=== PATIENT | female | born 1985 | race Caucasian/White ===

== ENCOUNTER 2017-03-24 00:08 | Emergency (ER) | payer OTHER, MEDICAID ==
[~2017-03-24] VITALS: Ht 170.2 cm; Wt 93.4 kg
[~2017-03-24 00:08] MED LIST: ACET-2321 PO; NO ROUTINE MEDS
--- OUTSIDE RECORDS SUMMARY | 2017-03-24 00:13 | XMS REPORT | Continuity of Care Document ---
Author Author [facility] Organization [facility] Address Unknown Phone Unavailable Support Name Relationship Address Phone ARABELLA DELAROSA MD Caregiver [address] [place] [phone] Unavailable EPIFANIO GANN Next Of Kin [address] [place] [address] Insurance Providers Guarantor Carmelita Gann Address [address] [place] [address] Email [email or web address] Payer [facility] Policy Number [id number] Subscriber's Name Carmelita Gann Relationship 18 Self Effective Date 16 Expiration Date 16 Advance Directives Directive Response Recorded Date/Time Advanced Directives Type None 10/17/16 1:30pm Chief Complaint and Reason for Visit Chief Complaint Headache Reason for Visit Headache Problems Active Problems Medical Problem Onset Date Status Abdominal discomfort Unknown Acute Bronchitis Unknown Acute Bronchospasm Unknown Acute Cat bite of multiple sites Unknown Acute Cat bite of multiple sites Unknown Acute Cough Unknown Acute Dyspnea Unknown Acute Headache Unknown Acute Headache Unknown Acute Headache Unknown Acute Hx of headache Unknown Acute Hx of headache Unknown Acute Left shoulder strain Unknown Acute Left shoulder strain Unknown Acute Migraine Unknown Acute Unknown Acute Unknown Acute Sinusitis Unknown Acute Term , repeat Unknown Acute Vomiting Unknown Acute Past Problems Medical Problem Onset Date Chest pain Unknown Medications Current Home Medications Medication Dose Units Route Directions Days Qty Instructions Start Date Acetaminophen (Tylenol) 325 Mg Tablet 1 Tab Oral as needed for Pain/Fever 10/17/16 No Routine Meds 05/05/16 Past Home Medications Medication Directions Ordered Status Amoxicillin/Potassium Clav (Augmentin 500-125 Tablet) 1 Each Tablet, 500 Mg Oral Three Times A Day 12/26/14 Discontinued Azithromycin (Zithromax) 250 Mg Tablet, 1 Tab Oral Daily 10/24/15 Discontinued Citalopram Hydrobromide (Celexa) 10 Mg Tablet, 10 Mg Oral Daily 10/28/10 Discontinued Citalopram Hydrobromide (Citalopram) 10 Mg/5 Ml Solution, 10 Mg Oral Daily Discontinued Docusate Sodium (Colace) 100 Mg Capsule, 1 Cap Oral Daily 09/17/10 Discontinued Ferrous Sulfate 1 Tab Tablet, 1 Tab Oral Daily 09/17/10 Discontinued Hydrocodone Bit/Acetaminophen (Lortab 5) 1 Tab Tablet, 1 Tab Oral As Needed 09/17/10 Discontinued Ibuprofen (Motrin) 800 Mg Tablet, 1 Tab Oral As Needed 09/17/10 Discontinued None , 12/26/14 Discontinued Vits W-Ca,Fe,Fa(<1MG) () 1 Tab Tablet, 1 Tab Oral Daily 17/09 Discontinued Social History Social History Problem Response Recorded Date/Time Onset Date Status Chewing Tobacco Status No 10/17/2016 1:30pm Not Applicable Not Applicable Hx Substance Use No 10/17/2016 1:30pm Not Applicable Not Applicable Hx Alcohol Use No 10/17/2016 1:30pm Not Applicable Not Applicable Has the pt used tobacco in the last 12 months No 02/20/2016 3:14pm Not Applicable Not Applicable Tobacco Usage none 06/28/2014 1:04pm Not Applicable Not Applicable Query Response Start Date Stop Date Smoking Status Never smoker Hospital Discharge Instructions No hospital discharge instructions. Plan of Care Discharge Date 10/17/16 2:25pm Disposition 01 DISCHARGED HOME, SELF-CARE Condition at Discharge Stable Instructions/Education Provided Migraine -- Adult Prescriptions See Medication Section Referrals [facility] Note: RECOMMEND FOLLOW UP WITH YOUR DOCTOR IN 24 HOURS IF NOT IMPROVED. Additional Instructions/Education RECOMMEND YOU GO HOME AND REST IN A QUIET ROOM ; MAY CONTINUE TO TAKE MOTRIN AND TYLENOL IF NEEDED. Functional Status No functional status results. Allergies, Adverse Reactions, Alerts Allergen Type Severity Reaction Status Last Updated No Known Drug Allergies Allergy Unknown Active 11/01/15 Immunizations Query Response on File Recorded Date/Time Hx Influenza Vaccination Y OCT 2015 02/20/16 10:20am Hx Pneumococcal Vaccination No 02/20/16 10:20am Hx Tetanus, Diptheria, Pertussis Yes 08/17/15 6:34pm Hx Influenza Vaccination Y OCT 2015 02/20/16 10:20am Hx Tetanus Diptheria Y 200408/17/15 6:34pm Hx Tetanus, Diptheria, Pertussis Yes 08/17/15 6:34pm DTaP Vaccine History 2005 11/16/16 1:30pm Influenza Vaccine Hx 12-30-15 11/16/16 1:30pm Tdap Vaccine Hx 01-30-16 02/20/16 3:14pm Vital Signs Acute Vital Signs Vital Response Date/Time Temperature (Fahrenheit) 97.8 deg F (96.8 - 99.1) 10/17/2016 2:25pm Temperature (Calculated Celsius) 36.66824 degrees C (36.0 - 37.3) 10/17/2016 2:25pm Pulse Rate (adult) 81 bpm (60 - 100) 10/17/2016 2:25pm Respiratory Rate 17 breaths/min (10 - 20) 10/17/2016 2:25pm O2 Sat by Pulse Oximetry 98 % (90 - 100) 10/17/2016 2:25pm Blood Pressure 122/59 mm Hg 10/17/2016 2:25pm Height (Feet) 5 feet 10/17/2016 1:30pm Height (Inches) 7.00 inches 10/17/2016 1:30pm Weight (Kilograms) 96.000 kg 10/17/2016 1:30pm Body Mass Index (BMI) 33.0 10/17/2016 1:30pm Results No known relevant diagnostic tests, laboratory data and/or discharge summary. Procedures No known history of procedures. Encounters Encounter Location Arrival/Admit Date Discharge/Depart Date Attending Provider Departed Emergency Room [facility] 10/17/16 1:26pm 10/17/16 2: 25pm ARABELLA DELAROSA MD Recent Diagnosis
--- OUTSIDE RECORDS SUMMARY | 2017-03-24 00:13 | XMS REPORT | Continuity of Care Document ---
Author Author [facility] Organization [facility] Address Unknown Phone Unavailable Support Name Relationship Address Phone RAFAEL BABB MD Caregiver [address] [place] [address] [place] [phone] EPIFANIO GANN Next Of Kin [address] [place] [address] Insurance Providers Payer Name Policy Number Subscriber Name Relationship [facility] [id number] Carmelita Gann 18 Self Problems Medical Problems Problem Onset Date Status Hx of headache Unknown Active Headache Unknown Active Hx of headache Unknown Active Headache Unknown Active Vomiting Unknown Active Headache Unknown Active Left shoulder strain Unknown Active Left shoulder strain Unknown Active Cat bite of multiple sites Unknown Active Medications Medication Dose Route Sig Days/Qty Instructions Order Date Discontinued Date Status Vits W-Ca,Fe,Fa(<1MG) 1 Tab PO DAILY 09/17/10 03/12/13 Discontinued Citalopram Hydrobromide 10 Mg PO DAILY 09/17/10 10/28/10 Discontinued Ferrous Sulfate 1 Tab PO DAILY 09/17/10 03/12/13 Discontinued Docusate Sodium 1 Cap PO DAILY 09/17/10 03/12/13 Discontinued Hydrocodone Bit/Acetaminophen 1 Tab PO NEEDED 09/17/10 10/28/10 Discontinued Ibuprofen 1 Tab PO NEEDED 09/17/10 03/12/13 Discontinued Citalopram Hydrobromide 10 Mg PO DAILY 10/28/10 03/12/13 Discontinued [None] 12/26/14 Active Amoxicillin/Potassium Clav 500 Mg PO THREE TIMES A DAY 7 Days 12/26/14 Active Social History Social History Problem Response Recorded Date/Time Hx Substance Use No 12/26/2014 1:20pm Hx Alcohol Use Yes 12/26/2014 1:20pm Tobacco Usage none 06/28/2014 1:04pm Query Response Start Date Stop Date Smoking Status Never smoker Hospital Discharge Instructions No hospital discharge instructions. Plan of Care No plan of care. Functional Status Query Response Date Recorded Physical Hygiene Self December 26, 2014 1:20pm Disabilities Visual December 26, 2014 1:20pm Devices Used Glasses December 26, 2014 1:20pm Dressing Self December 26, 2014 1:20pm Ambulation Self December 26, 2014 1:20pm Diet Self December 26, 2014 1:20pm Mental Status Alert December 26, 2014 1:32pm Disabilities Visual December 26, 2014 1:20pm Devices Used Glasses December 26, 2014 1:20pm Physical Hygiene Self December 26, 2014 1:20pm Dressing Self December 26, 2014 1:20pm Ambulation Self December 26, 2014 1:20pm Diet Self December 26, 2014 1:20pm Allergies, Adverse Reactions, Alerts Allergen Type Severity Reaction Status Last Updated No Known Drug Allergies Allergy Unknown Active 12/26/14 Immunizations Name Given Type Hx Influenza Vaccination Y 2012 Historical Hx Pneumococcal Vaccination No Historical Hx Tetanus, Diptheria, Pertussis Yes Historical Hx Influenza Vaccination Y 2012 Historical Hx Tetanus Diptheria Y 2004 Historical Hx Tetanus, Diptheria, Pertussis Yes Historical Tdap 12/26/14 Administered Vital Signs Acute Vital Signs Vital Response Date/Time Temperature (Fahrenheit) 98.3 deg F (96.8 - 99.1) Temperature (Calculated Celsius) 36.86729 degrees C (36.0 - 37.3) Pulse Rate (adult) 79 bpm (60 - 100) Respiratory Rate 16 breaths/min (10 - 20) O2 Sat by Pulse Oximetry 98 % (90 - 100) Blood Pressure 127/75 mm Hg Height 5 ft 7 in Weight 216 lb Body Mass Index 33.0 kg/m^2 Results Test Source Date Result Interp. Ref. Range Comments Alanine Aminotransferase (ALT/SGPT) June 28, 2014 1:20pm 27 U/L N 9-52 Albumin June 28, 2014 1:20pm 4.1 G/DL N 3.5-5.0 Albumin/Globulin Ratio June 28, 2014 1:20pm 1.6 RATIO N 1.1-2.2 Alkaline Phosphatase June 28, 2014 1:20pm 65 U/L N 38-126 Amylase Level June 28, 2014 1:20pm 53 U/L N 30-110 Anion Gap June 28, 2014 1:20pm 12 MEQ/L N 5-15 Aspartate Amino Transf (AST/SGOT) June 28, 2014 1:20pm 17 U/L N 14-36 BUN/Creatinine Ratio June 28, 2014 1:20pm 9 RATIO N 6-26 Basophils # (Auto) June 28, 2014 1:20pm 0.0 T/MM3 N 0-0.2 Basophils (%) (Auto) June 28, 2014 1:20pm 0.1 % N 0-2 Blood Urea Nitrogen June 28, 2014 1:20pm 6.0 MG/DL L 7-17 Calcium Level June 28, 2014 1:20pm 8.7 MG/DL N 8.4-10.2 Calculated Osmolality June 28, 2014 1:20pm 266 MOSM/KG N 261-280 Carbon Dioxide Level June 28, 2014 1:20pm 25 MEQ/L N 22-30 Chloride Level June 28, 2014 1:20pm 102 MEQ/L N 98-107 Creatinine June 28, 2014 1:20pm 0.7 MG/DL N 0.7-1.2 Eosinophils # (Auto) June 28, 2014 1:20pm 0.1 T/MM3 N 0-0.5 Eosinophils (%) (Auto) June 28, 2014 1:20pm 1.3 % N 0-4 Globulin June 28, 2014 1:20pm 2.5 G/DL N 2.4-3.6 Glucose Level June 28, 2014 1:20pm 103 MG/DL N 65-110 Hematocrit June 28, 2014 1:20pm 38.0 % N 36-46 Hemoglobin June 28, 2014 1:20pm 12.9 GM/DL N 12-16 Lipase June 28, 2014 1:20pm 56 U/L N 23-300 Lymphocytes # (Auto) June 28, 2014 1:20pm 1.7 T/MM3 N 1-4.8 Lymphocytes (%) (Auto) June 28, 2014 1:20pm 24.1 % N 23-45 Mean Corpuscular Hemoglobin June 28, 2014 1:20pm 28.7 UUG N 26-34 Mean Corpuscular Hemoglobin Concent June 28, 2014 1:20pm 33.9 GM/DL N 31 -37 Mean Corpuscular Volume June 28, 2014 1:20pm 84.4 UM3 N 80-100 Mean Platelet Volume June 28, 2014 1:20pm 9.6 UM3 N 9.4-12.4 Monocytes # (Auto) June 28, 2014 1:20pm 0.3 T/MM3 N 0-0.8 Monocytes (%) (Auto) June 28, 2014 1:20pm 4.8 % N 0-9.0 Neutrophils # (Auto) June 28, 2014 1:20pm 4.8 T/MM3 N 1.8-7.7 Neutrophils (%) (Auto) June 28, 2014 1:20pm 69.7 % H 33-66 Platelet Count June 28, 2014 1:20pm 303 T/MM3 N 130-400 Potassium Level June 28, 2014 1:20pm 3.7 MEQ/L N 3.6-5 RDW Standard Deviation June 28, 2014 1:20pm 40.7 FL N 36.9-50.2 Red Blood Count June 28, 2014 1:20pm 4.50 M/MM3 N 4.00-5.20 Sodium Level June 28, 2014 1:20pm 139 MEQ/L N 134-144 Total Bilirubin June 28, 2014 1:20pm 0.40 MG/DL N 0.20-1.30 Total Protein June 28, 2014 1:20pm 6.6 G/DL N 6.3-8.2 Urine Bacteria June 28, 2014 1:25pm None seen - Has specimen been collected/obtained? Y Urine Bilirubin June 28, 2014 1:25pm Negative - Has specimen been collected/obtained? Y Urine Blood June 28, 2014 1:25pm Negative - Has specimen been collected/obtained? Y Urine Collection Type June 28, 2014 1:25pm Voided-not cc-midstr - Has specimen been collected/obtained? Y Urine Color June 28, 2014 1:25pm Yellow - Has specimen been collected /obtained? Y Urine Glucose (UA) June 28, 2014 1:25pm Negative - Has specimen been collected/obtained? Y Urine Ketones June 28, 2014 1:25pm Negative - Has specimen been collected/obtained? Y Urine Leukocyte Esterase June 28, 2014 1:25pm 1+ H - Has specimen been collected/obtained? Y Urine Nitrite June 28, 2014 1:25pm Negative - Has specimen been collected/obtained? Y Urine Protein June 28, 2014 1:25pm Negative - Has specimen been collected/obtained? Y Urine RBC June 28, 2014 1:25pm 3-5 /HPF H - Has specimen been collected /obtained? Y Urine Specific [place] June 28, 2014 1:25pm 1.015 - Has specimen been collected/obtained? Y Urine Squamous Epithelial Cells June 28, 2014 1:25pm 0-5 - Has specimen been collected/obtained? Y Urine Turbidity June 28, 2014 1:25pm Sl cloudy - Has specimen been collected/obtained? Y Urine Urobilinogen June 28, 2014 1:25pm 0.2 EU/DL - Has specimen been collected/obtained? Y Urine WBC June 28, 2014 1:25pm 3-5 /HPF - Has specimen been collected /obtained? Y Urine pH June 28, 2014 1:25pm 7.5 - Has specimen been collected/ obtained? Y White Blood Count June 28, 2014 1:20pm 6.9 T/MM3 N 4.5-11.0 Chemistry Specimen Hemolysis June 28, 2014 1:20pm < 15 0-25 0-25: No Hemolysis.26-70: Slight Hemolysis - can falsely elevate K and Urine Protein. 71-285: Moderate Hemolysis - can falsely elevate K, Troponin I, CA 19-9, PTH, CSF GLucose, and Urine Protein, and can falsely decrease Phenytoin. 286-999: Gross Hemolysis - can falsely elevate K, Troponin I, CA 19-9, PTH, CSF Glucose, and Urine Protine, and can falsely decrease Phenytoin. Recommend specimen recollection. Lab Scanned Report August 29, 2010 12:47pm LAB RESULTS - SCANNED [id number] - Turbidity June 28, 2014 1:20pm < 20 0-20 Glomerular Filtration Rate Calc June 28, 2014 1:20pm 100 - Immature Granulocyte # (Auto) June 28, 2014 1:20pm 0.00 T/MM3 N 0.00- 0.03 Immature Granulocyte % (Auto) June 28, 2014 1:20pm 0.0 % N 0.0-0.5 Icterus Index June 28, 2014 1:20pm < 2 0-7 Urine Microscopic Not Indicated April 04, 2010 10:10pm Not indicated - Has specimen been collected/obtained? Y Procedures No known history of procedures. Encounters Encounter Location Date/Time Departed Emergency Room [facility] 12/26/14 11:59am Recent Diagnosis
--- OUTSIDE RECORDS SUMMARY | 2017-03-24 00:13 | XMS REPORT | Continuity of Care Document ---
Author Author [facility] Organization [facility] Address Unknown Phone Unavailable Support Name Relationship Address Phone ASHWIN GALLARDO MD Caregiver [address] [place] [address] [place] [address] EPIFANIO GANN Next Of Kin [address] [place] [address] Insurance Providers Payer Name Policy Number Subscriber Name Relationship [employer] [id number] Carmelita Gann 18 Self Advance Directives Directive Response Recorded Date/Time Advanced Directives Type None 08/25/14 9:48am Problems Medical Problems Problem Onset Date Status Hx of headache Unknown Active Headache Unknown Active Hx of headache Unknown Active Headache Unknown Active Vomiting Unknown Active Headache Unknown Active Left shoulder strain Unknown Active Left shoulder strain Unknown Active Medications Medication Dose Route Sig [...] 10 Mg PO DAILY 10/28/10 03/12/13 Discontinued Social History Social History Problem Response Recorded Date/Time Smoking Status Never smoker 04/26/2014 12:05pm Hx Substance Use No 08/25/2014 9:48am Hx Alcohol Use Yes 08/25/2014 9:48am Query Response Start Date Stop Date Smoking Status Never smoker Hospital Discharge Instructions No hospital discharge instructions. Plan of Care No plan of care. Functional Status Query Response Date Recorded Physical Hygiene Self August 25, 2014 9:48am Disabilities Visual August 25, 2014 9:48am Devices Used Glasses August 25, 2014 9:48am Dressing Self August 25, 2014 9:48am Ambulation Self August 25, 2014 9:48am Diet Self August 25, 2014 9:48am Mental Status Alert August 25, 2014 10:56am Disabilities Visual August 25, 2014 9:48am Devices Used Glasses August 25, 2014 9:48am Physical Hygiene Self August 25, 2014 9:48am Dressing Self August 25, 2014 9:48am Ambulation Self August 25, 2014 9:48am Diet Self August 25, 2014 9:48am Allergies, Adverse Reactions, Alerts Allergen Type Severity Reaction Status Last Updated No Known Drug Allergies Allergy Unknown Active 08/25/14 Immunizations Name Given Type Hx Influenza Vaccination Y 2012 Historical Hx Pneumococcal Vaccination No Historical Hx Tetanus, Diptheria, Pertussis Yes Historical Hx Influenza Vaccination Y 2012 Historical Hx Tetanus Diptheria Y 2004 Historical Hx Tetanus, Diptheria, Pertussis Yes Historical Vital Signs Acute Vital Signs Vital Response Date/Time Temperature (Fahrenheit) 98.2 deg F (96.8 - 99.1) Temperature (Calculated Celsius) 36.11799 degrees C (36.0 - 37.3) Pulse Rate (adult) 74 bpm (60 - 100) Respiratory Rate 16 breaths/min (10 - 20) O2 Sat by Pulse Oximetry 98 % (90 - 100) Blood Pressure 126/64 mm Hg Height 5 ft 7 in Weight 206 lb Body Mass Index 32.0 kg/m^2 Results Test Source Date Result Interp. [...] specimen been collected /obtained? Y Urine Specific [place] June 28, 2014 1:25pm 1.015 - Has [...] 29, 2010 12:47pm LAB RESULTS - SCANNED [id number] - Turbidity June 28, 2014 1:20pm < [...] - Has specimen been collected/obtained? Y Procedures Procedure Status Date Provider(s) THER/PROPH/DIAG INJ IV PUSH completed 06/28/14 TX/PRO/DX INJ NEW DRUG ADDON completed 06/28/14 HYDRATE IV INFUSION ADD-ON completed 06/28/14 Encounters Encounter Location Date/Time Registered Emergency Room [facility] 08/25/14 9:39am Departed Emergency Room [facility] 06/28/14 12:45pm Recent Diagnosis
--- OUTSIDE RECORDS SUMMARY | 2017-03-24 00:13 | XMS REPORT | Continuity of Care Document ---
Author Author [facility] Organization [facility] Address Unknown Phone Unavailable Support Name Relationship Address Phone ASHWIN GALLARDO MD Caregiver [address] [place] [address] [place] [address] EPIFANIO GANN Next Of Kin [address] [place], [place] [id number] Insurance Providers Payer Name Policy Number Subscriber Name Relationship Self Pay Raheel Gann 18 Self Advance Directives Directive Response Recorded Date/Time Advanced Directives Type None 06/28/14 3:25pm Problems Medical Problems Problem Onset Date Status Hx of headache Unknown Active Headache Unknown Active Hx of headache Unknown Active Headache Unknown Active Vomiting Unknown Active Headache Unknown Active Medications Medication Dose Route Sig [...] 10 Mg PO DAILY 10/28/10 03/12/13 Discontinued Miscellaneous Information 04/26/14 Active Promethazine HCl 1 Tab PO EVERY EIGHT HOURS PRN NAUSEA 15 Qty 06/28/14 Active Social History Social History Problem Response Recorded Date/Time Smoking Status Never smoker 04/26/2014 12:05pm Chewing Tobacco Status No 06/28/2014 1:06pm Hx Substance Use No 06/28/2014 1:06pm Hx Alcohol Use Yes 06/28/2014 1:06pm Query Response Start Date Stop Date Smoking Status Never smoker Hospital Discharge Instructions No hospital discharge instructions. Plan of Care No plan of care. Functional Status Query Response Date Recorded Physical Hygiene Self June 28, 2014 1:06pm Disabilities Visual June 28, 2014 1:06pm Devices Used Glasses June 28, 2014 1:06pm Dressing Self June 28, 2014 1:06pm Ambulation Self June 28, 2014 1:06pm Diet Self June 28, 2014 1:06pm Mental Status Alert June 28, 2014 2:32pm Disabilities Visual June 28, 2014 1:06pm Devices Used Glasses June 28, 2014 1:06pm Physical Hygiene Self June 28, 2014 1:06pm Dressing Self June 28, 2014 1:06pm Ambulation Self June 28, 2014 1:06pm Diet Self June 28, 2014 1:06pm Allergies, Adverse Reactions, Alerts Allergen Type Severity Reaction Status Last Updated No Known Drug Allergies Allergy Unknown Active 03/12/13 Immunizations Name Given Type Hx Influenza Vaccination Y 2012 Historical Hx Pneumococcal Vaccination No Historical Hx Tetanus, Diptheria, Pertussis Yes Historical Hx Influenza Vaccination Y 2012 Historical Hx Tetanus Diptheria Y 2004 Historical Hx Tetanus, Diptheria, Pertussis Yes Historical Vital Signs Acute Vital Signs Vital Response Date/Time Temperature (Fahrenheit) 97.2 deg F (96.8 - 99.1) Temperature (Calculated Celsius) 36.11432 degrees C (36.0 - 37.3) Pulse Rate (adult) 64 bpm (60 - 100) Respiratory Rate 18 breaths/min (10 - 20) O2 Sat by Pulse Oximetry 100 % (90 - 100) Blood Pressure 111/67 mm Hg Height 5 ft 7 in Weight 203 lb Body Mass Index 31.0 kg/m^2 Results Test Source Date Result Interp. [...] specimen been collected /obtained? Y Urine Specific [place] June 28, 2014 1:25pm 1.015 - Has [...] 29, 2010 12:47pm LAB RESULTS - SCANNED [id number] - Turbidity June 28, 2014 1:20pm < [...] Encounters Encounter Location Date/Time Departed Emergency Room [facility] 06/28/14 12:45pm Departed Emergency Room [facility] 04/26/14 11:28am Recent Diagnosis
[2017-03-24 00:17] VITALS: Ht 170.2 cm; Wt 93.4 kg
[2017-03-24] MEDS ORDERED: HYDROMORPHONE 2mg/ml INJECTION IV ONE (00:30)
[2017-03-24] MEDS ORDERED: KETOROLAC 30mg/ml INJECTION IV ONE (00:30)
[2017-03-24] MEDS ORDERED: NORMAL SALINE 1,000 ML IV ONE (00:30)
[2017-03-24] MEDS ORDERED: PROCHLORPERAZINE 10mg/2ml INJECTION IV ONE (00:30)
--- NOTE | 2017-03-24 00:41 | ERPDOC ---
Departure Disposition Decision Date: Mar 24, 2017 Disposition Decision Time: 01:40 Disposition: DISCHARGED HOME, SELF-CARE Impression Impression Impression: Primary Impression: Migraine headache Qualified Codes: G43.019 - Migraine without aura, intractable, without status migrainosus Severity: Severe Condition: Improved Seen By: Physician only Patient Instructions: Migraine Headache (ED) Problems/Meds/Labs Reviewed?: Yes Medications reviewed and manag: Yes Additional Instructions: Take your routine medications as usual Compazine 10 mg one tablet 3 times daily for the next 2 days then as needed for nausea or headache Return immediately to ER for any worsening Follow up care ordered?: Yes Mental Status: Alert HPI - Headache General Chief Complaint: Headache Stated Complaint: VOMITING,MIGRANE Time Seen by Provider: 00:22 Source: patient Exam Limitations: no limitations HPI - Headache Initial Comments Diffuse frontal headache for the past 24 hours, typical of her normal migraine. Patient began vomiting several hours ago, and has been unable to take any further medications at home. She took Tylenol several times today, with little relief. Normally she is able to take Tylenol, rest in a dark room, and her headaches go away. Periodically have to come to the ER for headaches, but is unsure what medications work well for her. Patient reports no trauma, no fever or chills, no dizziness, disorientation, or ataxia. Occurred At: home Onset: Rapid Duration: 12-24 hrs Severity/Quality: moderate, severe Location: frontal Prior Headaches/Recent Trauma: chronic headaches, occasional headaches Associated Symptoms: DENIES: confusion, facial pain, fatigue, fever/chills, flushing, loss of consciousness, nasal congestion, nasal drainage, nausea/ vomiting, numbness in legs/feet, rash, seizures, sinus infection, stiff neck, vision changes, weakness Hx of Similar Symptoms: Yes Allergies: Coded Allergies: No Known Drug Allergies (Verified Allergy, Unknown, 03/24/17) Past History Past Medical History Hx Echocardiogram: No Female: endometriosis Neurological: headaches, migraines Surgical History Reproductive/: Family History Family PMH: FOUND: cancer Vaccines Hx Influenza Vaccination: Yes (OCT 2015) Hx Pneumococcal Vaccination: No Hx Tetanus Diptheria: Yes (2004) Hx Tetanus, Diptheria, Pertuss: Yes Social History Smoking Status: Never smoker Does patient use chewing tobac: No Second Hand Exposure: No Alcohol Intake: none Sexuality: male partner Review of Systems Constitutional Constitutional: DENIES: appetite decrease, appetite increase, chills, dizziness , fever, weakness ENMT Ears: DENIES: pain Hearing: DENIES: hearing loss, tinnitus Balance: DENIES: vertigo Mouth/Throat: DENIES: change in swallowing, change in voice, hoarsness, painful swallowing, sore throat Cardiovascular Cardiac: DENIES: chest pain, dyspnea on exertion Rhythm/Rate: DENIES: irregular beat, palpitations, tachycardia Vascular: DENIES: pedal edema Pulmonary Respiratory: DENIES: cough, dyspnea, pleuritic chest pain GI Upper Abdomen: nausea, vomiting, DENIES: dysphagia, heartburn/indigestion, pain Lower Abdomen: DENIES: blood in stool, constipation, diarrhea, pain General: DENIES: burning, dysuria, frequency, pain, urgency Musculoskeletal General: DENIES: cramps, joint pain, joint swelling, pain, weakness Integumentary Skin: DENIES: rash, sores Neurological General: headache, DENIES: numbness, tingling, vertigo, weakness Psychiatric Psychiatric: DENIES: anxiety, depression, nervousness Physical Exam General General Nourishment: well nourished, well developed, appears stated age General Body Habitus: well groomed Vitals and Pain First Documented Vital Signs Date Time Temp Pulse Resp B/P Pulse Ox O2 Delivery O2 Flow Rate FiO2 03/24/17 00:17 18 127/66 96 Room Air Weight: Kilograms: 93.400 Height (feet): 5 Height (inches): 7.00 Triage Pain Scale: RN VS reviewed by Provider: Yes Normal Exams: Head: Normocephalic w/o trauma Eyes: Pupils are PERRLA w/ EOMI, No scleral icterus, irritation, or foreign bodies noted ENMT: No facial trauma, nasal exudates, pharyngeal erythema, or exudates are noted Neck: Full range of motion, without adenopathy, JVD, bruits or thyromegaly Chest/Resp: Clear all freeman, with good airflow, and symmetry bilaterally CV: Regular rate and rhythm, without murmur or gallop, Pulses 2+ all extremities, capillary refill, <2 seconds all ext., no pedal edema noted Abdomen: Bowel sounds positive, soft, non-tender, non-distended, no hepatosplenomegaly, masses or bruits noted Lymphatic: No lymphadenopathy, or lymphedema noted Musculoskeletal: No tenderness, or deformity noted, good range of motion, all extremities Integumentary: No rashes, hives, or bruising noted, hair and nails, without abnormality Neurologic: Patient is alert, and oriented, cranial nerves, motor/sensory/ cerebellar, exams w/o gross deficits, to observation Psychiatric: Patient exhibits, appropriate attention, emotion and affect ENMT (brief) Comments Positive photophobia Progress Results/Orders Orders Procedure Category Date Status Time Iv Lock (Ed Only) EDM 03/24/17 Transmitted 00:25 Ketorolac (Toradol) PHA 03/24/17 Complete 00:30 Prochlorperazine PHA 03/24/17 Complete (Compazine) 00:30 Hydromorphone PHA 03/24/17 Complete (Dilaudid) 00:30 Normal Saline (Normal PHA 03/24/17 Complete Saline Iv) 00:30 Medications Current ED Medications Ketorolac Tromethamine (Toradol) 30 mg O ONCE IV Last administered on 00:50; Start 03/24/17 at 00:30; Stop 03/24/17 at 00:31; Status DC Prochlorperazine Edisylate (Compazine) 10 mg O ONCE IV Last administered on 00:49; Start 03/24/17 at 00:30; Stop 03/24/17 at 00:31; Status DC Hydromorphone HCl 0.5 mg 0.5 mg O ONCE IV Last administered on 03/24/17 00:48 ; Start 03/24/17 at 00:30; Stop 03/24/17 at 00:31; Status DC Sodium Chloride (Normal Saline IV) 1,000 ml @ 0 mls/hr Q0M ONCE IV Last administered on 03/24/17 00:47; Start 03/24/17 at 00:30; Stop 03/24/17 at 00:31 ; Status DC Progress Progress Patient elects IV medications, given Toradol 30 mg, Compazine 10 mg, Dilaudid 0.5 mg with 1 L normal saline IV fluid bolus - to relief Patient given Compazine pack and instructions for use, AVERY TOSCANO MD Mar 24, 2017 00:41
--- OUTSIDE RECORDS SUMMARY | 2017-03-24 01:11 | XMS REPORT | Continuity of Care Document ---
Author Author [facility] Organization [facility] Address Unknown Phone Unavailable Support Name Relationship Address Phone ASHWIN GALLARDO MD Caregiver [address] [place] [address] [place] [address] EPIFANIO GANN Next Of Kin [address] [place], [place] [id number] Insurance Providers Payer Name Policy Number Subscriber [...] F (96.8 - 99.1) Temperature (Calculated Celsius) 36.40679 degrees C (36.0 - 37.3) Pulse Rate [...] specimen been collected /obtained? Y Urine Specific [place] June 28, 2014 1:25pm 1.015 - Has [...] 29, 2010 12:47pm LAB RESULTS - SCANNED [id number] - Turbidity June 28, 2014 1:20pm < [...] Encounters Encounter Location Date/Time Departed Emergency Room [facility] 06/28/14 12:45pm Departed Emergency Room [facility] 04/26/14 11:28am Recent Diagnosis
--- OUTSIDE RECORDS SUMMARY | 2017-03-24 01:11 | XMS REPORT | Continuity of Care Document ---
Author Author [facility] Organization [facility] Address Unknown Phone Unavailable Support Name Relationship Address Phone RAFAEL BABB MD Caregiver [address] [place] [address] [place] [phone] EPIFANIO GANN Next Of Kin [address] [place] [address] Insurance Providers Payer Name Policy Number Subscriber Name Relationship [facility] [id number] Carmelita Gann 18 Self Problems Medical Problems [...] F (96.8 - 99.1) Temperature (Calculated Celsius) 36.10844 degrees C (36.0 - 37.3) Pulse Rate [...] specimen been collected /obtained? Y Urine Specific [place] June 28, 2014 1:25pm 1.015 - Has [...] 29, 2010 12:47pm LAB RESULTS - SCANNED [id number] - Turbidity June 28, 2014 1:20pm < [...] Encounters Encounter Location Date/Time Departed Emergency Room [facility] 12/26/14 11:59am Recent Diagnosis
--- OUTSIDE RECORDS SUMMARY | 2017-03-24 01:11 | XMS REPORT | Continuity of Care Document ---
Author Author [facility] Organization [facility] Address Unknown Phone Unavailable Support Name Relationship Address Phone ASHWIN GALLARDO MD Caregiver [address] [place] [address] [place] [phone] EPIFANIO GANN Next Of Kin [address] [place] [address] Insurance Providers Payer Name Policy Number Subscriber Name Relationship [employer] [id number] Carmelita Gann 18 Self Advance Directives Directive [...] F (96.8 - 99.1) Temperature (Calculated Celsius) 36.78315 degrees C (36.0 - 37.3) Pulse Rate [...] specimen been collected /obtained? Y Urine Specific [place] June 28, 2014 1:25pm 1.015 - Has [...] 29, 2010 12:47pm LAB RESULTS - SCANNED [id number] - Turbidity June 28, 2014 1:20pm < [...] Encounters Encounter Location Date/Time Registered Emergency Room [facility] 08/25/14 9:39am Departed Emergency Room [facility] 06/28/14 12:45pm Recent Diagnosis
[2017-03-24] MEDS ORDERED: PROC-14 PO (01:42)
[2017-03-24] MEDS ORDERED: PROCHLORPERAZINE 10MG (PrePack) SENT HOME ONE (01:45)
[2017-03-24 01:58] VITALS: BP 112/59; PULSE 83; RESP 16; O2SAT 96
--- NOTE | 2017-03-24 01:58 | NUR ---
DEPART PT GIVEN DI FOR MIGRAINE HEADACHE, COMPAZINE, F/U. PREPAK/RX PROVIDED FOR COMPAZINE. VERBALIZES UNDERSTANDING OF DI, MEDS, F/U. QUESTIONS ASKED/ANSWERED - DENIES FURTHER QUESTIONS/NEEDS AT THIS TIME. REPORTS PAIN 0/10 AT THIS TIME. DENIES NAUSEA. IV SITE REMOVED. PERSONAL BELONGINGS GATHERED. PT ESCORTED/AMBULATED TO ED EXIT - GAIT STABLE, NO SIGN OF DISTRESS.
== END 2017-03-24 01:58 | disposition home or self-care (01) ==
LOC: ED 00:08
DX: G43.019 Migraine without aura, intractable, without status migrainosus (principal)
CPT/HCPCS: 96361; 96374; 96375; 99284; J0780; J1170; J1885; J7030